=== PATIENT | female | born 1940 | race Two or more races ===

== ENCOUNTER → 2016-03-08 | Outpatient (CLI) | payer OTHER ==
--- NOTE | 2016-03-08 16:41 | DX ---
Right hand 3 views - March 08, 2016 at 1520 hours Indication: Joint pain with attention to the head of the fifth metacarpophalangeal joint. Comparisons: None. Findings: Bone mineral density has minimally decreased. There is mild joint space narrowing at the P IP and DIP joints. Metacarpophalangeal joints are relatively well maintained, except for at the first MCP joint. Very questionable subtle erosive change at the second, third and fourth PIP joints. No fr acture. Impression: 1. Mild osteopenia. DEXA may be helpful for further characterization. 2. Mild osteoarthritic changes at the PIP joints, DIP joints and first carpometacarpal joint and ques tionable mild erosive changes at the second, third and fourth PIP joints.
== END ==
LOC: BRMIMAGING 15:02
PROVIDERS: ATTEND Family Medicine
DX: M85.841 Other specified disorders of bone density and structure, right hand (principal); M19.041 Primary osteoarthritis, right hand
CPT/HCPCS: 73130-PO

== ENCOUNTER → 2016-03-19 | Outpatient (CLI) | payer OTHER ==
--- NOTE | 2016-03-19 12:12 | MA ---
Screening Digital Mammogram With iCAD Analysis Clinical Indications: Routine screening. A sister was diagnosed with breast cancer in her 70s. Technique: Standard cephalocaudal and mediolateral oblique projections were obtained. This examinatio n was processed by the iCAD computer aided detection system. Comparison: February 2015, September 2013, July 2012, April 2011, October 2009, September 2008. Breast density: Type B; Scattered fibroglandular densities. Findings: CAD was reviewed. No masses, suspicious calcifications or other signs of malignancy are id entified. There has been no significant change in the appearance of either breast. Impression: Negative mammogram. BI-RADS 1. Recommendation: Routine mammographic screening in one year as long as physical examination [facility]ativ [facility]. Negative mammography should not preclude additional workup of a clinically suspicious finding. The patient's information is entered into a reminder system with a target due date for her next mammo gram.
== END ==
LOC: BRMIMAGING 08:35
DX: Z12.31 Encounter for screening mammogram for malignant neoplasm of breast (principal); Z80.3 Family history of malignant neoplasm of breast
CPT/HCPCS: G0202